=== PATIENT | male | born 1960 | race Caucasian/White ===

== ENCOUNTER 2019-04-15 17:44 | Emergency (ER) | payer MEDICAID ==
[~2019-04-15] VITALS: Ht 162.6 cm; Wt 66.0 kg
[2019-04-15 18:03] VITALS: BP 120/82
--- NOTE | 2019-04-15 18:30 | NUR ---
PT TO ER BED 10
[2019-04-15] MEDS ORDERED: traMADol 50 MG TAB PO ONE (19:10)
--- NOTE | 2019-04-15 19:12 | NUR ---
C/O R 3RD DIGIT FINGER PAIN 6/10 X4 DAYS. INFLAMMATION NOTED AROUND CUTICLE OF 3RD DIGIT. PT DENIES INJURY. DAUGHTER IS AT BEDSIDE AT THIS TIME. CAP REFIL <3 SEC, M/S FUNCTION INTACT. DENIES NUMBNESS/TINGLING.
[2019-04-15 19:29] VITALS: BP 120/82
--- NOTE | 2019-04-15 19:30 | NUR ---
Patient discharged with v/s stable. Written and verbal after care instructions given and explained. Patient alert, oriented and verbalized understanding of instructions. Ambulatory with steady gait. All questions addressed prior to discharge. ID band removed. Patient advised to follow up with PMD. Rx of TRAMADOL & KEFLEX given. Patient educated on indication of medication including possible reaction and side effects. Opportunity to ask questions provided and answered.
== END 2019-04-15 19:30 | disposition home or self-care (01) ==
LOC: MED 17:44
DX: L03.011 Cellulitis of right finger (principal); E11.9 Type 2 diabetes mellitus without complications; Z88.6 Allergy status to analgesic agent
CPT/HCPCS: 82948; 99283

== ENCOUNTER 2019-04-21 20:48 | Emergency (ER) | payer MEDICAID ==
[~2019-04-21] VITALS: Ht 162.6 cm; Wt 65.8 kg
[2019-04-21 20:50] VITALS: BP 147/73
--- NOTE | 2019-04-21 20:50 | NUR ---
TO BED # 08 AMBULATORY
--- NOTE | 2019-04-21 20:56 | NUR ---
PT AMBULATED TO BED 8 WITH FAMILY
--- NOTE | 2019-04-21 21:01 | NUR ---
Dr. Lim examining patient.
--- NOTE | 2019-04-21 21:05 | NUR ---
59/M PRESENTS TO ED WITH FAMILY, C/O R 3RD DIGIT ABSCESS, X6 DAYS; SKIN INTACT, WITH MILD ERYTHEMA AND SWELLING, +CMS. PT WAS SEEN HERE 6 DAYS AGO, WAS GIVEN RX KEFLEX WITH NO RELIEF. PT AWAKE AND ALERT, SKIN NORMAL WARM AND DRY, RR EVEN AND UNLABORED. HX DM, HTN RX METFORMIN, NIFEDIPINE
--- NOTE | 2019-04-21 21:07 | NUR ---
X-Ray at bedside.
[2019-04-21] MEDS ORDERED: INSULIN REGULAR, HUMAN 100 UNIT/ML VIAL SUBQ ONE (21:15)
--- NOTE | 2019-04-21 21:18 | NUR ---
DR HUYNH AT BEDSIDE FOR R 3RD DIGIT ABSCESS I&D
[2019-04-21] MEDS ORDERED: NEOMYCIN/POLYMYXIN/BACITRACIN 0.9 GM/1 PKT TP ONE (21:20)
[2019-04-21] MEDS ORDERED: SULFAMETH/TRIMETH DS 800/160MG 1 TAB PO ONE (21:20)
[2019-04-21] MEDS ORDERED: traMADol 50 MG TAB PO ONE (21:25)
--- NOTE | 2019-04-21 21:37 | NUR ---
CLEANSED R 3RD DIGIT WITH NS AND GAUZE, PAT DRY, APPLIED NEOSPORIN, COVERED WITH BANDAID, PT TOLERATED WELL.
[2019-04-21 22:10] VITALS: BP 141/89
--- NOTE | 2019-04-21 22:10 | NUR ---
BLOOD GLUCOSE 287, DR HUYNH MADE AWARE, OK FOR DISCHARGE
--- NOTE | 2019-04-21 22:11 | NUR ---
Patient discharged with v/s stable. Written and verbal after care instructions given and explained. Patient alert, oriented and verbalized understanding of instructions. Ambulatory with steady gait. All questions addressed prior to discharge. ID band removed. Patient advised to follow up with PMD. Rx of NIFEDIPINE, BACTRIM, TRAMADOL, METFORMIN given. Patient educated on indication of medication including possible reaction and side effects. Opportunity to ask questions provided and answered.
== END 2019-04-21 22:11 | disposition home or self-care (01) ==
LOC: MED 20:48
DX: L03.011 Cellulitis of right finger (principal); E11.9 Type 2 diabetes mellitus without complications; Z88.6 Allergy status to analgesic agent
CPT/HCPCS: 73130; 82948; 99284; J1815; Q0092

== ENCOUNTER 2020-12-26 17:14 | Emergency (ER) | payer MEDICAID ==
[~2020-12-26] VITALS: Ht 165.1 cm; Wt 68.0 kg
[2020-12-26 17:23] VITALS: BP 173/86
[2020-12-26] MEDS ORDERED: LIDOCAINE VISCOUS 2% 20 ML UDC PO ONE (18:20)
[2020-12-26] MEDS ORDERED: AMOXIL/CLAVULANATE 875/125 MG 1 TAB PO ONE (18:20)
[2020-12-26] MEDS ORDERED: DEXAMETHASONE 10 MG/ML VIAL IM ONE (18:20)
[2020-12-26] MEDS ORDERED: AMOX-1000 PO (18:24)
[2020-12-26] MEDS ORDERED: IBUP-2213 PO (18:24)
[2020-12-26 18:43] VITALS: BP 173/86
== END 2020-12-26 18:43 | disposition home or self-care (01) ==
LOC: MED 17:14
DX: J03.90 Acute tonsillitis, unspecified (principal); E11.9 Type 2 diabetes mellitus without complications; Z87.448 Personal history of other diseases of urinary system
CPT/HCPCS: 96372; 99283; J1100

== ENCOUNTER 2022-11-18 08:02 | Emergency (ER) | payer MEDICAID, OTHER ==
[~2022-11-18] VITALS: Ht 165.1 cm; Wt 66.7 kg
[~2022-11-18 08:02] MED LIST: ACET-10509 PO; ACYC400T14 PO; AMOX-1000 PO; GABA300C PO; IBUP-2213 PO; MELA1TAB32 PO
[2022-11-18 08:06] VITALS: BP 154/74
--- NOTE | 2022-11-18 09:10 | NUR ---
62 Y/O MALE BIB DAUGHTER C/O NUMBNESS TINGLING OF THE FINGERS AND FEET AND THE NECK X3DAYS WITH LEFT SIDED HEADACHE AND NECK PAIN X3 WEEKS. BILATERAL HAND GRASPS EQUAL. PER PT HE HAD SHINGLES 3 WEEKS AGO AND IS UNABLE TO OPTIMAL SLEEP D/T PAIN. TAKING NORCO 5-325 FOR PAIN WITH MINIMAL EFFECT NKA PMH: DM, HTN
[2022-11-18 09:14] LABS: BASOPHILS % (AUTO) 0.2 % (0.0-2.0); EOSINOPHILS % (AUTO) 0.7 % (0.0-4.0); HEMATOCRIT 40.4 % (36-52); HEMOGLOBIN 13.5 g/dL (12.0-18.0); LYMPHOCYTES # (AUTO) 1.9 K/uL (2.0-11.5); LYMPHOCYTES % (AUTO) 28.4 % (20.5-51.1); MEAN CORPUSCULAR HEMOGLOBIN 29 pg (27-31); MEAN CORPUSCULAR HGB CONC 33 g/dL (33-37); MEAN CORPUSCULAR VOLUME 86.6 fL (80-94); MONOCYTES # (AUTO) 0.5 K/uL (0.8-1.0); MONOCYTES % (AUTO) 7.3 % (1.7-9.3); NEUTROPHILS # (AUTO) 4.3 K/uL (1.8-7.7); NEUTROPHILS % (AUTO) 63.4 % (42.2-75.2); PLATELET COUNT (AUTO) 286 K/uL (140-450); RED BLOOD CELL COUNT(AUTO) 4.66 MIL/uL (4.20-6.10); RED CELL DISTRIBUTION WIDTH 14.1 % (11.6-13.7); WHITE BLOOD COUNT (AUTO) 6.7 K/uL (4.8-10.8)
[2022-11-18 09:38] LABS: ALBUMIN 4.3 g/dL (3.4-5.0); CARBON DIOXIDE 29.8 mmol/L (21-32); CREATININE 1.8 mg/dL (0.6-1.3); POTASSIUM 4.8 mmol/L (3.5-5.1); TOTAL BILIRUBIN 0.4 mg/dL (0.0-1.0)
[2022-11-18] MEDS ORDERED: IBUP-2213 PO (09:52)
--- NOTE | 2022-11-18 10:05 | NUR ---
Patient discharged with v/s stable. Written and verbal after care instructions about insomnia and peripheral neuropathy given and explained. Patient alert, oriented and verbalized understanding of instructions. Ambulatory with steady gait. All questions addressed prior to discharge. ID band removed. Patient advised to follow up with PMD. Rx of motrin given. Patient educated on indication of medication including possible reaction and side effects. Opportunity to ask questions provided and answered.
[2022-11-18] MEDS ORDERED: DIPH25TA53 PO (13:26)
== END 2022-11-18 10:05 | disposition home or self-care (01) ==
LOC: MED 08:02
DX: G47.00 Insomnia, unspecified (principal); R20.0 Anesthesia of skin; E11.9 Type 2 diabetes mellitus without complications; I10 Essential (primary) hypertension; Z86.73 Personal history of transient ischemic attack (TIA), and cerebral infarction without residual deficits; Z79.4 Long term (current) use of insulin; Z79.899 Other long term (current) drug therapy
CPT/HCPCS: 36415; 80053; 85025; 99283